=== PATIENT | male | born 1965 | race Caucasian/White ===

== ENCOUNTER 2019-12-06 05:09 | Emergency (ER) | payer OTHER, MEDICARE ==
[2019-12-06 05:21] VITALS: BP 154/85; PULSE 73; RESP 16; TEMP 97
--- NOTE | 2019-12-06 06:09 | XR ---
EXAM: XR Right Shoulder Complete, 2 or More Views CLINICAL HISTORY: ITS.REASON XR Reason: fall, shoulder pain TECHNIQUE: Two or more views of the right shoulder. COMPARISON: No relevant prior studies available. FINDINGS: Bones/joints: No acute fracture. No dislocation. Soft tissues: Unremarkable. IMPRESSION: No acute osseous abnormalities.
--- NOTE | 2019-12-06 06:11 | ED ---
General Adult HPI - General Chief complaint: Fall Stated complaint: Fall,Shoulder Injury Time Seen by Provider: 12/06/19 05:40 Source: patient Mode of arrival: ambulatory - History of Present Illness Initial comments: Wyatt silva 54-year-old gentleman presents the ER today for evaluation of right-sided shoulder pain after slip and fall on ice. Patient reports that earlier in the night he slipped and fell and is experiencing pain in his right shoulder. Pain is worse with abduction or any range of motion. Patient reports he did not hit his head he did not lose consciousness. He has not taken any medications or tried anything for pain. - Related Data Previous Rx's Medication Instructions Recorded Cephalexin [Keflex] 500 mg PO Q6HR #40 cap 07/30/15 Hydrocodone/Acetaminophen [[place] 1 each PO Q6HR PRN #20 tab 07/30/15 5-325] Allergies Allergy/AdvReac Type Severity Reaction Status Date / Time codeine Allergy Unknown Verified 12/06/19 05:21 ibuprofen [From Motrin] Allergy Rash/Hives Verified 12/06/19 05:21 Review of Systems ROS Statement: Those systems with pertinent positive or pertinent negative responses have been documented in the HPI. ROS Other: All systems not noted in ROS Statement are negative. Past Medical History Past Medical History: Hyperlipidemia, Hypertension History of Any Multi-Drug Resistant Organisms: None Reported Past Surgical History: Hernia Repair, Orthopedic Surgery Additional Past Surgical History / Comment(s): L hand Past Psychological History: No Psychological Hx Reported Smoking Status: Current every day smoker Past Alcohol Use History: None Reported Past Drug Use History: None Reported General Exam - General Exam Comments Initial Comments: Physical Exam GENERAL: Patient is well-developed and well-nourished. Patient is nontoxic and well-hydrated and is in no distress. HENT: Normocephalic, Atraumatic. EYES: PERRL, EOMI PULMONARY: Unlabored respirations. CARDIOVASCULAR: RRR Warm and well perfused extremities ABDOMEN: Non-distended SKIN: No rashes or bruising : Deferred NEUROLOGIC: Alert and oriented Normal speech Normal gait MUSCULOSKELETAL: Amended range of motion of right shoulder secondary to pain, no obvious deformity or dislocation PSYCHIATRIC: No SI/HI Course Vital Signs 12/06/19 05:14 Temperature 97.0 F L Pulse Rate 73 Respiratory 16 Rate Blood Pressure 154/85 O2 Sat by Pulse 97 Oximetry Medical Decision Making - Medical Decision Making X-ray was obtained and revealed no signs of fracture dislocation. There is concern for before meals separation on physical exam. Patient be discharged home in stable condition. Disposition Clinical Impression: Fall, AC separation Disposition: HOME SELF-CARE Condition: Stable Instructions (If sedation given, give patient instructions): Acromioclavicular Separation (ED) Is patient prescribed a controlled substance at d/c from ED?: No Referrals: Marine Burciaga MD [Primary Care Provider] - 1-2 days
== END 2019-12-06 06:23 | disposition home or self-care (01) ==
LOC: EC 05:09
DX: S43.101A Unspecified dislocation of right acromioclavicular joint, initial encounter (principal); I10 Essential (primary) hypertension; F17.200 Nicotine dependence, unspecified, uncomplicated; Z88.5 Allergy status to narcotic agent; Z88.6 Allergy status to analgesic agent; W00.0XXA Fall on same level due to ice and snow, initial encounter
CPT/HCPCS: 99283

== ENCOUNTER 2020-01-02 12:57 | Emergency (ER) | payer MEDICARE ==
[2020-01-02 13:10] VITALS: RESP 18
[2020-01-02] MEDS ORDERED: HYDROcodone/APAP 5-325MG 1 EACH TAB PO STA (13:52)
--- NOTE | 2020-01-02 14:00 | ED ---
General Adult HPI - General Chief complaint: Extremity Problem,Nontraumatic Stated complaint: feet swelling Time Seen by Provider: 01/02/20 13:43 Source: patient Mode of arrival: EMS Limitations: no limitations - History of Present Illness Initial comments: Dictation was produced using [employer] dictation software. please excuse any grammatical, word or spelling errors. Chief Complaint: 54-year-old homeless male presents with bilateral feet pain. History of Present Illness: 54-year-old male he has past medical history of hyperlipidemia and hypertension. Patient is homeless. He has not taken his shoes off in over a week. He presents today with bilateral foot pain. When asked why he doesn't take his shoes off he says he is homeless. Patient states he's had a misstep part because his feet hurt more today. Patient is requesting food and pain medications. Patient denies any constitutional symptoms. The ROS documented in this emergency department record has been reviewed and confirmed by me. Those systems with pertinent positive or negative responses have been documented in the HPI. All other systems are other negative and/or noncontributory. PHYSICAL EXAM: General Impression: Alert and oriented x3, not in acute distress HEENT: Normocephalic atraumatic, extra-ocular movements intact, pupils equal and reactive to light bilaterally, mucous membranes moist. Cardiovascular: Heart regular rate and rhythm, S1&S2 audible, no murmurs, rubs or gallops Chest: Lungs clear to auscultation bilaterally, no rhonchi, no wheeze, no rales Abdomen: Bowel sounds present, abdomen soft, non-tender, non-distended, no organomegaly Musculoskeletal: Pulses present and equal in all extremities, no peripheral edema Motor: no focal deficits noted Neurological: CN II-XII grossly intact, no focal motor or sensory deficits noted Feet: Disheveled bilateral feet, mild erythema, mild tenderness to palpation of the toes Psych: Normal affect and mood ED course: 54yo homeless male presents to bilateral feet. He has not been taken off his shoes and socks regularly. Signs upon arrival are within acceptable limits. Patient is told to take off his shoes and socks regularly. He is told to practice good hygiene and to wash his feet at least daily. He is given 2 sandwiches, 3 cans of pepsi and a bag of chips. Patient clear for discharge. Told to take Motrin and Tylenol for his pain. Advised follow-up with primary care physician. Patient given resources for homeless penitentiary. - Related Data Previous Rx's Medication Instructions Recorded Cephalexin [Keflex] 500 mg PO Q6HR #40 cap 07/30/15 Hydrocodone/Acetaminophen [[place] 1 each PO Q6HR PRN #20 tab 07/30/15 5-325] Allergies Allergy/AdvReac Type Severity Reaction Status Date / Time codeine Allergy Unknown Verified 01/02/20 13:10 ibuprofen [From Motrin] Allergy Rash/Hives Verified 01/02/20 13:10 Review of Systems ROS Statement: Those systems with pertinent positive or pertinent negative responses have been documented in the HPI. ROS Other: All systems not noted in ROS Statement are negative. Past Medical History Past Medical History: Hyperlipidemia, Hypertension History of Any Multi-Drug Resistant Organisms: None Reported Past Surgical History: Hernia Repair, Orthopedic Surgery Additional Past Surgical History / Comment(s): L hand Past Psychological History: No Psychological Hx Reported Smoking Status: Current every day smoker Past Alcohol Use History: None Reported Past Drug Use History: None Reported General Exam Limitations: no limitations Course Vital Signs 01/02/20 13:07 Temperature 96.7 F L Pulse Rate 77 Respiratory 18 Rate Blood Pressure 147/93 O2 Sat by Pulse 98 Oximetry Disposition Clinical Impression: Foot pain Disposition: HOME SELF-CARE Condition: Good Instructions (If sedation given, give patient instructions): How to Take a Shower (GEN), Arthralgia (ED) Is patient prescribed a controlled substance at d/c from ED?: No Referrals: Marine Burciaga MD [Primary Care Provider] - 1-2 days Time of Disposition: 14:00
[2020-01-02 14:28] VITALS: BP 136/89; PULSE 78; TEMP 97.2
== END 2020-01-02 14:26 | disposition home or self-care (01) ==
LOC: EC 12:57
DX: M79.671 Pain in right foot (principal); M79.672 Pain in left foot; E78.5 Hyperlipidemia, unspecified; I10 Essential (primary) hypertension; F17.200 Nicotine dependence, unspecified, uncomplicated; Z59.0 Homelessness; Z88.5 Allergy status to narcotic agent; Z88.6 Allergy status to analgesic agent
CPT/HCPCS: 99283

== ENCOUNTER 2020-01-11 03:23 | Emergency (ER) | payer MEDICARE, OTHER ==
--- NOTE | 2020-01-11 03:30 | ED ---
General Adult HPI - General Stated complaint: Arm Pain Time Seen by Provider: 01/11/20 03:25 - History of Present Illness Initial comments: Wyatt is a very pleasant homeless 54-year-old male who is brought to the ER today by ambulance for evaluation of right shoulder pain. Patient reports he fell approximately 2 weeks ago and has been having some pain in his shoulder since then. Tonight the patient was outside when he got very cold began shivering which worsen the pain in his shoulder any decided to come the ER for evaluation. Patient denies other injuries. Denies any recent illness. - Related Data Previous Rx's Medication Instructions Recorded Cephalexin [Keflex] 500 mg PO Q6HR #40 cap 07/30/15 Hydrocodone/Acetaminophen [[place] 1 each PO Q6HR PRN #20 tab 07/30/15 5-325] Allergies Allergy/AdvReac Type Severity Reaction Status Date / Time codeine Allergy Unknown Verified 01/02/20 13:10 ibuprofen [From Motrin] Allergy Rash/Hives Verified 01/02/20 13:10 Review of Systems ROS Statement: Those systems with pertinent positive or pertinent negative responses have been documented in the HPI. ROS Other: All systems not noted in ROS Statement are negative. Past Medical History Past Medical History: Hyperlipidemia, Hypertension History of Any Multi-Drug Resistant Organisms: None Reported Past Surgical History: Hernia Repair, Orthopedic Surgery Additional Past Surgical History / Comment(s): L hand Past Psychological History: No Psychological Hx Reported Smoking Status: Current every day smoker Past Alcohol Use History: None Reported Past Drug Use History: None Reported General Exam - General Exam Comments Initial Comments: Physical Exam GENERAL: Patient is well-developed and well-nourished. Patient is nontoxic and well-hydrated and is in no distress. HENT: Normocephalic, Atraumatic. EYES: PERRL, EOMI PULMONARY: Unlabored respirations. CARDIOVASCULAR: RRR Warm and well perfused extremities ABDOMEN: Non-distended SKIN: No rashes or bruising : Deferred NEUROLOGIC: Alert and oriented Normal speech Normal gait MUSCULOSKELETAL: Moving all extremities with no apparent injury PSYCHIATRIC: No SI/HI Course Vital Signs 01/11/20 01/11/20 03:24 04:30 Temperature 97.7 F Pulse Rate 67 90 Respiratory 16 18 Rate Blood Pressure 135/97 128/64 O2 Sat by Pulse 99 98 Oximetry Medical Decision Making - Medical Decision Making The patient was seen and evaluated history was obtained from patient x-rays were obtained and confirmed a possible fracture of the greater tuberosity of the humerus, patient was placed in a sling. Patient was given warm blankets and allowed to rest in the emergency department. This time patient has no acute medical emergency and is stable for discharge home. Disposition Clinical Impression: Fracture of greater tuberosity of humerus Disposition: HOME SELF-CARE Condition: Stable Instructions (If sedation given, give patient instructions): Arm Fracture in Adults (ED) Is patient prescribed a controlled substance at d/c from ED?: No Referrals: Marine Bucriaga MD [Primary Care Provider] - 1-2 days
[2020-01-11 03:31] VITALS: TEMP 97.7
--- NOTE | 2020-01-11 03:53 | XR ---
EXAMINATION TYPE: XR shoulder limited RT DATE OF EXAM: 01/11/2020 COMPARISON: 12/06/2019 HISTORY: Fall. Arm pain. TECHNIQUE: 2 views FINDINGS: There is some deformity of the greater tuberosity of the humerus. There is no dislocation. Scapula appears intact. IMPRESSION: I suspect is subacute or acute nondisplaced fracture of the greater tuberosity of the hum erus.
[2020-01-11 05:21] VITALS: BP 128/64; PULSE 90; RESP 18
== END 2020-01-11 06:48 | disposition home or self-care (01) ==
LOC: EC 03:23
DX: S42.251A Displaced fracture of greater tuberosity of right humerus, initial encounter for closed fracture (principal); I10 Essential (primary) hypertension; F17.200 Nicotine dependence, unspecified, uncomplicated; Z88.5 Allergy status to narcotic agent; Z88.6 Allergy status to analgesic agent; Z59.0 Homelessness; X58.XXXA Exposure to other specified factors, initial encounter
CPT/HCPCS: 99283

== ENCOUNTER 2021-11-24 23:19 | Emergency (ER) | payer OTHER ==
[2021-11-25 01:42] LABS: Basophils # (A) 0.1 k/uL (0-0.2); Basophils % (A) 1 %; Eosinophils # (A) 0.2 k/uL (0-0.7); Eosinophils % (A) 2 %; HCT 42.2 % (39.0-53.0); HGB 14.5 gm/dL (13.0-17.5); Lymphocytes # (A) 1.9 k/uL (1.0-4.8); Lymphocytes % (A) 19 %; MCH 31.9 pg (25.0-35.0); MCHC 34.4 g/dL (31.0-37.0); MCV 92.6 fL (80.0-100.0); Mean Platelet Volume 7.9; Monocytes # (A) 0.7 k/uL (0-1.0); Monocytes % (A) 8 %; Neutrophils # (A) 6.6 k/uL (1.3-7.7); Neutrophils % (A) 68 %; Platelet Count 272 k/uL (150-450); RBC 4.55 m/uL (4.30-5.90); WBC 9.6 k/uL (3.8-10.6)
[2021-11-25 02:02] LABS: ALT 24 U/L (4-49); African American GFR (CKD) >90 (>60 ml/min/1.73 sqM); Anion Gap 5 mmol/L; Blood Urea Nitrogen 24 mg/dL (9-20); Calcium 9.8 mg/dL (8.4-10.2); Carbon Dioxide 26 mmol/L (22-30); Chloride 106 mmol/L (98-107); Glucose 105 mg/dL (74-99); Non-African American GFR(CKD) >90 (>60 ml/min/1.73 sqM); Sodium 137 mmol/L (137-145); Total Bilirubin 0.7 mg/dL (0.2-1.3)
[2021-11-25 02:20] LABS: AST 39 U/L (17-59); Albumin 4.1 g/dL (3.5-5.0); Magnesium 2.2 mg/dL (1.6-2.3); Potassium 5.1 mmol/L (3.5-5.1); Total Protein 7.1 g/dL (6.3-8.2)
[2021-11-25 02:21] LABS: Alkaline Phosphatase 74 U/L (38-126)
[2021-11-25 06:08] VITALS: RESP 16
--- NOTE | 2021-11-25 06:48 | ED ---
General Adult HPI - General Chief complaint: Neuro Symptoms/Deficit Stated complaint: hypothermia Time Seen by Provider: 11/24/21 23:49 Source: patient, EMS Mode of arrival: EMS Limitations: no limitations - History of Present Illness Initial comments: This patient is a 55-year-old man who presents with burning and tingling to the bilateral upper extremities. The patient is currently homeless and EMS had observe the patient lying in one place for prolonged period. They went to check on him and he reported that his fingers were tingling on the bilateral hands and they brought him here for evaluation. The patient states there is some tingling and burning. He denies loss of function. Patient states his feet are doing okay. Patient denies alcohol use. -: hour(s) Location: left, right, upper extremity Radiation: non-radiation - Related Data Previous Rx's Medication Instructions Recorded Cephalexin [Keflex] 500 mg PO Q6HR #40 cap 07/30/15 Hydrocodone/Acetaminophen [[place] 1 each PO Q6HR PRN #20 tab 07/30/15 5-325] Allergies Allergy/AdvReac Type Severity Reaction Status Date / Time codeine Allergy Unknown Verified 11/24/21 23:38 ibuprofen [From Motrin] Allergy Rash/Hives Verified 11/24/21 23:38 Review of Systems ROS Statement: Those systems with pertinent positive or pertinent negative responses have been documented in the HPI. ROS Other: All systems not noted in ROS Statement are negative. Constitutional: Denies: fever, chills, weakness Eyes: Denies: eye pain, vision change Respiratory: Denies: cough, dyspnea Cardiovascular: Denies: chest pain, palpitations Gastrointestinal: Denies: abdominal pain, vomiting Genitourinary: Denies: dysuria Musculoskeletal: Denies: back pain Skin: Denies: rash Neurological: Reports: paresthesias. Denies: headache, weakness, numbness Past Medical History Past Medical History: Hyperlipidemia, Hypertension History of Any Multi-Drug Resistant Organisms: None Reported Past Surgical History: Hernia Repair, Orthopedic Surgery Additional Past Surgical History / Comment(s): L hand Past Psychological History: No Psychological Hx Reported Smoking Status: Current every day smoker Past Alcohol Use History: None Reported Past Drug Use History: None Reported General Exam Limitations: no limitations General appearance: alert, in no apparent distress Head exam: Present: atraumatic, normocephalic Eye exam: Present: normal appearance. Absent: scleral icterus, conjunctival injection Neck exam: Present: normal inspection Respiratory exam: Present: normal lung sounds bilaterally. Absent: respiratory distress, wheezes, rales, rhonchi, stridor Cardiovascular Exam: Present: regular rate, normal rhythm, normal heart sounds. Absent: systolic murmur, diastolic murmur, rubs, gallop GI/Abdominal exam: Present: soft. Absent: distended, tenderness, guarding, rebound, rigid, mass Extremities exam: Present: normal inspection, normal capillary refill. Absent: pedal edema, calf tenderness Back exam: Present: full ROM. Absent: CVA tenderness (R), CVA tenderness (L) Neurological exam: Present: alert, oriented X3, CN II-XII intact. Absent: motor sensory deficit Skin exam: Present: warm, dry, intact, normal color, other (The digits do not have any evidence of frostbite. Normal coloration. There is intact sensation.). Absent: rash Course Vital Signs 11/24/21 11/24/21 11/25/21 23:21 23:41 01:35 Temperature 96.9 F L 96.9 F L 97.1 F L Pulse Rate 82 82 79 Respiratory 17 17 16 Rate Blood Pressure 163/96 163/96 124/73 O2 Sat by Pulse 97 97 94 L Oximetry 11/25/21 11/25/21 05:00 06:00 Temperature 96.9 F L 97.0 F L Pulse Rate 73 64 Respiratory 15 16 Rate Blood Pressure 115/70 103/64 O2 Sat by Pulse 94 L 94 L Oximetry Medical Decision Making - Lab Data Result diagrams: 11/25/21 01:29 11/25/21 01:29 Lab Results 11/25/21 11/25/21 Range/Units 01:29 01:29 WBC 9.6 (3.8-10.6) k/uL RBC 4.55 (4.30-5.90) m/uL Hgb 14.5 (13.0-17.5) gm/dL Hct 42.2 (39.0-53.0) % MCV 92.6 (80.0-100.0) fL MCH 31.9 (25.0-35.0) pg MCHC 34.4 (31.0-37.0) g/dL RDW 13.0 (11.5-15.5) % Plt Count 272 (150-450) k/uL MPV 7.9 Neutrophils % 68 % Lymphocytes % 19 % Monocytes % 8 % Eosinophils % 2 % Basophils % 1 % Neutrophils # 6.6 (1.3-7.7) k/uL Lymphocytes # 1.9 (1.0-4.8) k/uL Monocytes # 0.7 (0-1.0) k/uL Eosinophils # 0.2 (0-0.7) k/uL Basophils # 0.1 (0-0.2) k/uL Sodium 137 (137-145) mmol/L Potassium 5.1 (3.5-5.1) mmol/L Chloride 106 (98-107) mmol/L Carbon Dioxide 26 (22-30) mmol/L Anion Gap 5 mmol/L BUN 24 H (9-20) mg/dL Creatinine 0.86 (0.66-1.25) mg/dL Est GFR (CKD-EPI)AfAm >90 (>60 ml/min/1.73 sqM) Est GFR (CKD-EPI)NonAf >90 (>60 ml/min/1.73 sqM) Glucose 105 H (74-99) mg/dL Calcium 9.8 (8.4-10.2) mg/dL Magnesium 2.2 (1.6-2.3) mg/dL Total Bilirubin 0.7 (0.2-1.3) mg/dL AST 39 (17-59) U/L ALT 24 (4-49) U/L Alkaline Phosphatase 74 (38-126) U/L Total Protein 7.1 (6.3-8.2) g/dL Albumin 4.1 (3.5-5.0) g/dL Disposition Clinical Impression: Paresthesia and pain of both upper extremities Disposition: HOME SELF-CARE Condition: Good Is patient prescribed a controlled substance at d/c from ED?: No Referrals: Marine Burciaga MD [Primary Care Provider] - 1-2 days Adrian Bell MD [STAFF PHYSICIAN] - 1-2 days
[2021-11-25 09:55] VITALS: BP 105/64; PULSE 73; TEMP 97.3
== END 2021-11-25 10:10 | disposition home or self-care (01) ==
LOC: EC 23:19
DX: R20.2 Paresthesia of skin (principal); M79.622 Pain in left upper arm; M79.621 Pain in right upper arm; I10 Essential (primary) hypertension; E78.5 Hyperlipidemia, unspecified; F17.200 Nicotine dependence, unspecified, uncomplicated; Z88.5 Allergy status to narcotic agent; Z88.6 Allergy status to analgesic agent
CPT/HCPCS: 36415; 80053; 83735; 85025; 99284

== ENCOUNTER 2022-11-06 21:00 | Emergency (ER) | payer OTHER ==
[2022-11-06 21:08] VITALS: TEMP 97.8
--- NOTE | 2022-11-06 21:38 | ED ---
Lower Extremity Injury HPI - General Chief Complaint: Extremity Injury, Lower Stated Complaint: rt hip pain Time Seen by Provider: 11/06/22 21:09 Source: patient Mode of arrival: EMS Limitations: no limitations - History of Present Illness Initial Comments: Patient is a 56-year-old male presenting with chief complaint of right hip pain. Patient has been ongoing for the last 3 months. Patient is homeless and states he has frequently slipped on ice landing on the hip. No head injury or loss of consciousness. No blood thinners. No recent falls. Patient was found sleeping by [employer] and brought in by EMS today. No numbness, tingling, weakness, loss of range of motion, loss of bowel or bladder control, saddle paresthesia. - Related Data Previous Rx's Medication Instructions Recorded Cephalexin [Keflex] 500 mg PO Q6HR #40 cap 07/30/15 Hydrocodone/Acetaminophen [[place] 1 each PO Q6HR PRN #20 tab 07/30/15 5-325] Allergies Allergy/AdvReac Type Severity Reaction Status Date / Time codeine Allergy Unknown Verified 11/24/21 23:38 ibuprofen [From Motrin] Allergy Rash/Hives Verified 11/24/21 23:38 Review of Systems ROS Statement: Those systems with pertinent positive or pertinent negative responses have been documented in the HPI. ROS Other: All systems not noted in ROS Statement are negative. Past Medical History Past Medical History: Hyperlipidemia, Hypertension History of Any Multi-Drug Resistant Organisms: None Reported Past Surgical History: Hernia Repair, Orthopedic Surgery Additional Past Surgical History / Comment(s): L hand Past Psychological History: No Psychological Hx Reported Smoking Status: Current every day smoker Past Alcohol Use History: None Reported Past Drug Use History: None Reported General Exam Limitations: no limitations General appearance: alert, in no apparent distress Head exam: Present: atraumatic, normocephalic, normal inspection Eye exam: Present: normal appearance Neck exam: Present: normal inspection, full ROM Extremities exam: Present: normal inspection, full ROM Neurological exam: Present: alert, oriented X3, CN II-XII intact Psychiatric exam: Present: normal affect, normal mood Skin exam: Present: warm, dry, intact, normal color. Absent: rash Course Vital Signs 11/06/22 21:03 Temperature 97.8 F Pulse Rate 94 Respiratory 16 Rate Blood Pressure 144/90 O2 Sat by Pulse 95 Oximetry Medical Decision Making - Medical Decision Making Was pt. sent in by a medical professional or institution (GINGER Ralph, CUSTOMER ENGAGEMENT REPRESENTATIVE, urgent care, hospital, or senior care...) When possible be specific @ -No Did you speak to anyone other than the patient for history (EMS, parent, family, police, friend...)? What history was obtained from this source @ -No Did you review nursing and triage notes (agree or disagree)? Why? @ -I reviewed and agree with nursing and triage notes Were old charts reviewed (outside hosp., previous admission, EMS record, old EKG, old radiological studies, urgent care reports/EKG's, senior care records)? Report findings @ -No old charts were reviewed Differential Diagnosis (chest pain, altered mental status, abdominal pain women, abdominal pain men, vaginal bleeding, weakness, fever, dyspnea, syncope, headache, dizziness, GI bleed, back pain, seizure, CVA, palpatations, mental health)? @ Differential includes fracture, sprain, arthritis, this is not meant to be in all-inclusive list EKG interpreted by me (3pts min.). @ -As above X-rays interpreted by me (1pt min.). @ -X-ray shows no fracture or dislocation CT interpreted by me (1pt min.). @ -None done U/S interpreted by me (1pt. min.). @ -None done What testing was considered but not performed or refused? (CT, X-rays, U/S, labs)? Why? @ -None What meds were considered but not given or refused? Why? @ -None Did you discuss the management of the patient with other professionals (professionals i.e. GINGER Ralph, CUSTOMER ENGAGEMENT REPRESENTATIVE, lab, RT, psych nurse, oncology social work, calculus teacher, teacher, conservation enforcement officer, case finisher)? Give summary @ -No Was smoking cessation discussed for >3mins.? @ -No Was critical care preformed (if so, how long)? @ -No Were there social determinants of health that impacted care today? How? (Homelessness, low income, unemployed, alcoholism, drug addiction, transportation, low edu. Level, literacy, decrease access to med. care, halfway, rehab)? @ -No Was there de-escalation of care discussed even if they declined (Discuss DNR or withdrawal of care, Hospice)? DNR status @ -No What co-morbidities impacted this encounter? (DM, HTN, Smoking, COPD, CAD, Cancer, CVA, ARF, Chemo, Hep., AIDS, mental health diagnosis, sleep apnea, morbid obesity)? @ -None Was patient admitted / discharged? Hospital course, mention meds given and route, prescriptions, significant lab abnormalities, going to OR and other pertinent info. @ -She is a 56-year-old male presenting with right hip pain for the last 3 months. Physical examination is unremarkable. X-ray shows no fracture or dislocation. Patient is educated on these findings. Educated on supportive treatment. Agreeable with discharge.Follow-up with PCP. Report back to ER with any new or worsening symptoms. Discussed return parameters and answered all questions. Patient conveyed verbal understanding and agreed to the plan. I discussed this case in detail with my attending Dr. Bradley Undiagnosed new problem with uncertain prognosis? @ -No Drug Therapy requiring intensive monitoring for toxicity (Heparin, Nitro, Insulin, Cardizem)? @ -No Were any procedures done? @ -No Diagnosis/symptom? @ -Hip pain Acute, or Chronic, or Acute on Chronic? @ -Acute Uncomplicated (without systemic symptoms) or Complicated (systemic symptoms)? @ -Uncomplicated Side effects of treatment? @ -No Exacerbation, Progression, or Severe Exacerbation? @ -No Poses a threat to life or bodily function? How? (Chest pain, [place], [place], pneumonia, PE, COPD, DKA, ARF, appy, cholecystitis, CVA, Diverticulitis, Homicidal, Suicidal, threat to staff... and all critical care pts) @ -No Disposition Clinical Impression: Hip pain Disposition: HOME SELF-CARE Condition: Good Instructions (If sedation given, give patient instructions): Hip Pain (ED) Additional Instructions: Report back to ER with any new or worsening symptoms. Follow-up with PCP. Take Tylenol as needed for pain control Is patient prescribed a controlled substance at d/c from ED?: No Referrals: Marine Burciaga MD [Primary Care Provider] - 1-2 days Time of Disposition: 22:09
--- NOTE | 2022-11-06 21:52 | XR ---
EXAMINATION TYPE: XR Hip RT and AP Pelvis DATE OF EXAM: 11/06/2022 COMPARISON: 07/30/2015 HISTORY: Right hip pain TECHNIQUE: 3 views FINDINGS: The pelvic ring is intact. The proximal right femur and hip joint are intact. No hip dyspla geetha. Sacroiliac joints are intact. IMPRESSION: Normal pelvis and right hip exam.
[2022-11-06] MEDS ORDERED: ACETAMINOPHEN TAB 325 MG TAB PO STA (22:09)
[2022-11-07 04:19] VITALS: BP 154/70; PULSE 60; RESP 18
== END 2022-11-07 04:15 | disposition home or self-care (01) ==
LOC: EC 21:00
DX: M25.551 Pain in right hip (principal); I10 Essential (primary) hypertension; F17.200 Nicotine dependence, unspecified, uncomplicated; Z88.5 Allergy status to narcotic agent; Z88.6 Allergy status to analgesic agent
CPT/HCPCS: 73502; 99284

== ENCOUNTER 2023-03-20 15:56 | Emergency (ER) | payer OTHER ==
[2023-03-20 16:01] VITALS: PULSE 80; RESP 18; TEMP 98
--- NOTE | 2023-03-20 17:31 | ED ---
General Adult HPI - General Chief complaint: ENT Stated complaint: nose bleed Time Seen by Provider: 03/20/23 16:27 Source: patient, RN notes reviewed Mode of arrival: ambulatory Limitations: no limitations - History of Present Illness Initial comments: 7-year-old male presents to the emergency department with chief complaint of nosebleed. Patient states that this started just prior to calling EMS. The nosebleed has stopped upon arrival. It appears to have been bleeding out of the right nostril and the source is visualized. He states that he has had nosebleeds in the past. Patient denies hypertension, blood thinners, decongestant use, lightheadedness, headache, fever, chills, abdominal pain, nausea, vomiting. - Related Data Previous Rx's Medication Instructions Recorded Cephalexin [Keflex] 500 mg PO Q6HR #40 cap 07/30/15 Hydrocodone/Acetaminophen [[place] 1 each PO Q6HR PRN #20 tab 07/30/15 5-325] Allergies Allergy/AdvReac Type Severity Reaction Status Date / Time codeine Allergy Unknown Verified 03/20/23 16:01 ibuprofen [From Motrin] Allergy Rash/Hives Verified 03/20/23 16:01 Review of Systems ROS Statement: Those systems with pertinent positive or pertinent negative responses have been documented in the HPI. ROS Other: All systems not noted in ROS Statement are negative. Past Medical History Past Medical History: Hyperlipidemia, Hypertension History of Any Multi-Drug Resistant Organisms: None Reported Past Surgical History: Hernia Repair, Orthopedic Surgery Additional Past Surgical History / Comment(s): L hand Past Psychological History: No Psychological Hx Reported Smoking Status: Current every day smoker Past Alcohol Use History: None Reported Past Drug Use History: None Reported General Exam Limitations: no limitations General appearance: alert, in no apparent distress Head exam: Present: atraumatic, normocephalic, normal inspection Eye exam: Present: normal appearance, PERRL, EOMI. Absent: scleral icterus, conjunctival injection, periorbital swelling ENT exam: Present: mucous membranes moist, other (dried blood coming from the right nostril, source of bleeding visualized which appears to be in Kiesselbach's plexus but no longer bleeding) Neck exam: Present: normal inspection, full ROM. Absent: tenderness, meningismus, lymphadenopathy Respiratory exam: Present: normal lung sounds bilaterally. Absent: respiratory distress, wheezes, rales, rhonchi, stridor Cardiovascular Exam: Present: regular rate, normal rhythm, normal heart sounds. Absent: systolic murmur, diastolic murmur, rubs, gallop, clicks Extremities exam: Present: normal inspection, full ROM, normal capillary refill. Absent: tenderness, pedal edema, joint swelling, calf tenderness Back exam: Present: normal inspection Neurological exam: Present: alert, oriented X3 Psychiatric exam: Present: normal affect, normal mood Skin exam: Present: warm, dry, intact, normal color. Absent: rash Course Vital Signs 03/20/23 03/20/23 15:57 17:40 Temperature 98 F Pulse Rate 80 80 Respiratory 18 18 Rate Blood Pressure 130/78 132/78 O2 Sat by Pulse 100 100 Oximetry Medical Decision Making - Medical Decision Making Was pt. sent in by a medical professional or institution (, PA, WOOD ROUTER, urgent care, hospital, or [facility]...) When possible be specific @ -No Did you speak to anyone other than the patient for history (EMS, parent, family, police, friend...)? What history was obtained from this source @ -EMS Did you review nursing and triage notes (agree or disagree)? Why? @ -I reviewed and agree with nursing and triage notes Were old charts reviewed (outside hosp., previous admission, EMS record, old EKG, old radiological studies, urgent care reports/EKG's, [facility] records)? Report findings @ -No old charts were reviewed Differential Diagnosis (chest pain, altered mental status, abdominal pain women, abdominal pain men, vaginal bleeding, weakness, fever, dyspnea, syncope, headache, dizziness, GI bleed, back pain, seizure, CVA, palpatations, mental health, musculoskeletal)? @ -Nosebleed, Nasal foreign body, hypertension, overuse of decongestants, this is not all-inclusive EKG interpreted by me (3pts min.). @ -None X-rays interpreted by me (1pt min.). @ -None done CT interpreted by me (1pt min.). @ -None done U/S interpreted by me (1pt. min.). @ -None done What testing was considered but not performed or refused? (CT, X-rays, U/S, labs)? Why? @ -None What meds were considered but not given or refused? Why? @ -None Did you discuss the management of the patient with other professionals (professionals i.e. Dr., PA, WOOD ROUTER, lab, RT, psych nurse, social media community manager, gun striper, teacher, medical officer, director of casework)? Give summary @ -No Was smoking cessation discussed for >3mins.? @ -No Was critical care preformed (if so, how long)? @ -No Were there social determinants of health that impacted care today? How? (Homelessness, low income, unemployed, alcoholism, drug addiction, transportation, low edu. Level, literacy, decrease access to med. care, custodial, rehab)? @ -No Was there de-escalation of care discussed even if they declined (Discuss DNR or withdrawal of care, Hospice)? DNR status @ -No What co-morbidities impacted this encounter? (DM, HTN, Smoking, COPD, CAD, Cancer, CVA, ARF, Chemo, Hep., AIDS, mental health diagnosis, sleep apnea, morbid obesity)? @ -None Was patient admitted / discharged? Hospital course, mention meds given and route, prescriptions, significant lab abnormalities, going to OR and other p ertinent info. @ -Discharged. Patient presented to emergency department via EMS with chief complaint of nosebleed. The bleeding has now subsided. Vital signs are stable. The possible source of the bleeding was visualized and no longer bleeding. Further treatment is not necessary at this time as the patient is well-appearing and in no longer having bleeding. He was advised to return to the emergency department for new or worsening symptoms or if bleeding continues again. Advised to follow-up with his primary care provider. Patient discharged in stable condition, case discussed with my attending, Dr. Clarke Undiagnosed new problem with uncertain prognosis? @ -No Drug Therapy requiring intensive monitoring for toxicity (Heparin, Nitro, Insulin, Cardizem)? @ -No Were any procedures done? @ -No Diagnosis/symptom? @ -Anterior epistaxis Acute, or Chronic, or Acute on Chronic? @ -Acute Uncomplicated (without systemic symptoms) or Complicated (systemic symptoms)? @ -uncomplicated Side effects of treatment? @ -No Exacerbation, Progression, or Severe Exacerbation? @ -No Poses a threat to life or bodily function? How? (Chest pain, [place], [place], pneumonia, PE, COPD, DKA, ARF, appy, cholecystitis, CVA, Diverticulitis, Homicidal, Suicidal, threat to staff... and all critical care pts) @ -No Disposition Clinical Impression: Anterior epistaxis Disposition: HOME SELF-CARE Condition: Stable Instructions (If sedation given, give patient instructions): Nosebleed (ED) Additional Instructions: Follow up with your primary care provider. Please return to the emergency department for new or worsening symptoms. Is patient prescribed a controlled substance at d/c from ED?: No Referrals: Marine Burciaga MD [Primary Care Provider] - 1-2 days Time of Disposition: 17:31
[2023-03-20 17:41] VITALS: BP 132/78
== END 2023-03-20 17:54 | disposition home or self-care (01) ==
LOC: EC 15:56
DX: R04.0 Epistaxis (principal); I10 Essential (primary) hypertension; F17.200 Nicotine dependence, unspecified, uncomplicated
CPT/HCPCS: 99283

== ENCOUNTER 2024-05-19 19:28 | Emergency (ER) | payer OTHER ==
[2024-05-19 19:37] VITALS: RESP 18; TEMP 97.4
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
[2024-05-19] MEDS: ACETAMINOPHEN TAB 500 MG TAB PO STA (21:02)
--- NOTE | 2024-05-19 21:12 | XR ---
EXAMINATION TYPE: XR knee complete LT DATE OF EXAM: 05/19/2024 8:31 PM CLINICAL INDICATION:Male, 58 years old with history of fall, injury; [facility] COMPARISON: None. TECHNIQUE: XR knee complete LT; examined in Frontal, lateral and oblique projections. FINDINGS: No evidence of any acute osseous pathology, soft tissue swelling, or joint effusion is no avel. IMPRESSION: 1. No acute osseous pathology.
[2024-05-19 21:58] VITALS: BP 133/80; PULSE 71
== END 2024-05-19 22:02 | disposition home or self-care (01) ==
LOC: EC 19:28
DX: M25.562 Pain in left knee (principal); F17.200 Nicotine dependence, unspecified, uncomplicated; Z88.5 Allergy status to narcotic agent; Z88.8 Allergy status to other drugs, medicaments and biological substances
CPT/HCPCS: 99283

== ENCOUNTER 2024-08-09 08:00 | Emergency (ER) | payer SELFPAY ==
[2024-08-09] MEDS: ETOMIDATE 2 MG/ML 10 ML VIAL IVP STA (08:03)
[2024-08-09] MEDS: ROCURONIUM 10 MG/ML (5 ML VIAL) IV STA (08:03)
[2024-08-09 08:07] LABS: Glucose,Whole Blood 130 mg/dL (70-110)
[2024-08-09] MEDS: SODIUM CHLORIDE 0.9% 1,000 ML IV STA (08:10)
[2024-08-09] MEDS: DIPH,PERTUS(ACELL)TETVAC-LF 0.5 ML VIAL IM ONE (08:21)
[2024-08-09 08:22] LABS: Basophils # (A) 0.1 k/uL (0-0.2); Basophils % (A) 1 %; Eosinophils # (A) 0.2 k/uL (0-0.7); Eosinophils % (A) 1 %; HCT 41.9 % (39.0-53.0); HGB 13.6 gm/dL (13.0-17.5); Lymphocytes # (A) 3.3 k/uL (1.0-4.8); Lymphocytes % (A) 21 %; MCHC 32.6 g/dL (31.0-37.0); MCV 95.2 fL (80.0-100.0); Mean Platelet Volume 7.8; Monocytes # (A) 0.7 k/uL (0-1.0); Monocytes % (A) 5 %; Neutrophils # (A) 10.6 k/uL (1.3-7.7); Neutrophils % (A) 70 %; Platelet Count 317 k/uL (150-450); RBC 4.39 m/uL (4.30-5.90); RDW 13.3 % (11.5-15.5); WBC 15.3 k/uL (3.8-10.6)
[2024-08-09 08:28] VITALS: BP 138/81; PULSE 118; RESP 42
[2024-08-09 08:39] LABS: ALT 173 U/L (4-49); AST 238 U/L (17-59); African American GFR (CKD) >90 (>60 ml/min/1.73 sqM); Albumin 3.4 g/dL (3.5-5.0); Alcohol <10 mg/dL; Alkaline Phosphatase 87 U/L (38-126); Anion Gap 3 mmol/L; Blood Urea Nitrogen 21 mg/dL (9-20); Calcium 8.3 mg/dL (8.4-10.2); Carbon Dioxide 27 mmol/L (22-30); Chloride 109 mmol/L (98-107); Glucose 135 mg/dL (74-99); Non-African American GFR(CKD) >90 (>60 ml/min/1.73 sqM); Potassium 4.1 mmol/L (3.5-5.1); Sodium 139 mmol/L (137-145); Total Bilirubin 0.4 mg/dL (0.2-1.3); Total Protein 5.7 g/dL (6.3-8.2)
[2024-08-09 08:49] LABS: INR 0.9 (<1.2); Partial Thromboplastin Time 23.2 sec (22.0-30.0); Prothrombin Time 10.5 sec (10.0-12.5)
[2024-08-09] MEDS: fentaNYL (PF) 50 MCG/ML 2 ML AMP IVP STA ×2 (08:53→09:32)
--- NOTE | 2024-08-09 09:06 | CT ---
EXAMINATION TYPE: CT brain kyung orellana con DATE OF EXAM: 08/09/2024 COMPARISON: 07/30/2015 HISTORY: Pain CT DLP: 2883.6 mGycm Automated exposure control for dose reduction was used. TECHNIQUE: CT scan of the head and cervical spine are performed without contrast. FINDINGS: There is no acute intracranial hemorrhage, mass effect, or midline shift identified. The ventricles and sulci are within normal limits in size. There is a fracture through the right posteri or occiput extending into the right occipital condyle. No midline shift. No mass effect. Could not ex clude a tiny area of petechial hemorrhage or subarachnoid hemorrhage within the right posterior fossa . Could be artifactual measures only 1 to 2 mm in thickness.. ET and NG tube noted. There is degenerative change of the atlantoaxial joint. Previously noted fractu re involving the right cerebral bone. Multilevel hypertrophic and degenerative change of the spine. Linear lucency through C4 is stable com pared to prior examination appears to represent a prominent nutrient canal Changes of chronic sinusitis. Multilevel facet arthropathy and uncovertebral joint hypertrophy with m ultilevel foraminal encroachment. IMPRESSION: 1. There is linear fracture through the right posterior occipital bone. Question a tiny area of subar achnoid hemorrhage or petechial hemorrhage within the right occipital lobe.. 2. Degenerative change of the cervical spine. [facility], , 08/09/2024 9:04 AM
[2024-08-09] MEDS: levETIRAcetam IV 500 MG/5 ML VIAL IVP STA (09:18)
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
[2024-08-09 09:25] LABS: ABG Base Excess -5.5 mmol/L; ABG HCO3 21 mmol/L (21-25); ABG Oxygen Saturation 99.9 % (94-97); ABG PCO2 45 mmHg (35-45); ABG PH 7.28 (7.35-7.45); ABG PO2 322 mmHg (83-108); ABG TCO2 23 mmol/L (19-24); Allen Test Performed? Yes
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
[2024-08-09] MEDS: TRANEXAMIC 1,000 MG/100ML-NACL 1,000 MG in SALINE 1 100ML.BAG IV STA (09:35)
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
[2024-08-09 10:00] LABS: Appearance,Urine Cloudy (Clear); Bilirubin,Urine Negative (Negative); Blood,Urine Large (Negative); Color,Urine Light Red; Glucose,Urine (UA) 1+ (Negative); Ketones,Urine Negative (Negative); Leukocyte Esterase,Urine Negative (Negative); Nitrite,Urine Negative (Negative); PH, Urine 6.5 (5.0-8.0); Protein,Urine 2+ (Negative); RBC,Urine >182 /hpf (0-5); Specific Gravity,Urine 1.021 (1.001-1.035); Squamous Epithelial Cell,Urine 1 /hpf (0-4); Urobilinogen,Urine <2.0 mg/dL (<2.0); WBC,Urine 36 /hpf (0-5)
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
[2024-08-09 10:36] LABS: Amphetamine Screen,Urine Not Detected (NotDetected); Barbiturate Screen,Urine Not Detected (NotDetected); Benzodiazepines Screen,Urine Not Detected (NotDetected); Cocaine Screen,Urine Not Detected (NotDetected); Methadone Screen, Urine Not Detected (NotDetected); Opiate Screen,Urine Not Detected (NotDetected); Oxycodone Screen, Urine Not Detected (NotDetected); Phencyclidine Screen,Urine Not Detected (NotDetected); Tricyclic Antidepressant,Urine Not Detected (NotDetected); Urn Cannabinoid Scrn Not Detected (NotDetected)
== END 2024-08-09 10:10 | disposition other institution (70) ==
LOC: EDBD → SUPCPDRO 08:00 → MERGE 08:00 → EC 08:00
DX: S42.202A Unspecified fracture of upper end of left humerus, initial encounter for closed fracture (principal); S22.43XA Multiple fractures of ribs, bilateral, initial encounter for closed fracture; S02.91XA Unspecified fracture of skull, initial encounter for closed fracture; S36.113A Laceration of liver, unspecified degree, initial encounter; S27.322A Contusion of lung, bilateral, initial encounter; Z88.5 Allergy status to narcotic agent; Z88.6 Allergy status to analgesic agent; Z88.1 Allergy status to other antibiotic agents; V03.10XA Pedestrian on foot injured in collision with car, pick-up truck or van in traffic accident, initial encounter
CPT/HCPCS: 36415; 36600; 94002; 93005; 86900; 86901; 80053; 82805; 83605; 84484; 85025; 85610; 85730; 86850; 86920; 81001; 80306; 80320; 72170; 73060; 73600; 71045; 72125; 70450; 71260; 74177; 90715; 31500; 99291; 96365; 96367; 96375 ×3; 96376; 90471; 36430; G0390; P9016; P9059; J0690; J3010; J1953; J2704; Q9967